=== PATIENT | male | born 1990 | race African-American/Black ===

== ENCOUNTER 2019-03-15 21:07 | Emergency (ER) | payer MEDICAID ==
[~2019-03-15] VITALS: Ht 172.7 cm; Wt 73.0 kg
[2019-03-15 21:11] VITALS: BP 142/87
== END 2019-03-16 00:35 | disposition left against medical advice (07) ==
LOC: ER 21:07
DX: Z53.21 Procedure and treatment not carried out due to patient leaving prior to being seen by health care provider (principal)